=== PATIENT | male | born 1955 | race Caucasian/White ===

== ENCOUNTER 2018-03-08 21:31 | Emergency (ER) | payer OTHER ==
[~2018-03-08] VITALS: Ht 165.1 cm; Wt 74.4 kg
[2018-03-08 21:35] VITALS: Ht 165.1 cm; Wt 74.4 kg
[2018-03-09 00:34] LABS: CARBON DIOXIDE 23.4 mmol/L (21-32); CREATININE SERUM 1.8 mg/dL (0.7-1.3); POTASSIUM SERUM 4.1 mmol/L (3.5-5.1)
[2018-03-09 00:38] LABS: PLATELET COUNT 207 x10^3mcL (130-400); RED CELL DISTRIBUTION WIDTH 13.5 % (11.5-14.5)
[2018-03-09 00:42] LABS: ALBUMIN 4.4 g/dL (3.4-5.0); BILIRUBIN TOTAL 0.8 mg/dL (0.20-1.00)
[2018-03-09 01:00] LABS: TOTAL PROTEIN, SERUM 8.4 g/dL (6.4-8.2)
[2018-03-09 01:45] LABS: BAND NEUTROPHIL 7 % (0-10); BASOPHIL 0 % (0-2); MONOCYTE 4 % (0-7); SEGMENTED NEUTROPHILS 74 % (37-75)
[2018-03-09 01:50] LABS: PLATELET MORPHOLOGY LARGE PLATELET SEEN; rbc morphology (normal/abnorm) ABNORMAL (NORMAL)
[2018-03-09 02:49] VITALS: BP 111/67
== END 2018-03-09 02:49 | disposition home or self-care (01) ==
LOC: ED 21:31
PROVIDERS: Emergency Medicine
DX: R11.10 Vomiting, unspecified (principal); R19.7 Diarrhea, unspecified; R10.9 Unspecified abdominal pain; I10 Essential (primary) hypertension
CPT/HCPCS: J0500; J2550; J7030